=== PATIENT | female | born 1985 | race African-American/Black ===

== ENCOUNTER 2021-07-01 00:54 | Emergency (ER) | payer BC, SELFPAY ==
--- NOTE | ~2021-07-01 | CT_ITS ---
EXAMINATION: CT abdomen pelvis w con DATE: 07/01/2021 02:16 INDICATION: Left lower quadrant abdominal pain TECHNIQUE: Computed tomography (CT) of the abdomen and pelvis was performed with 100 mL Omnipaque-350 intravenous contrast. Automated exposure control and iterative reconstruction technique were employe d. The dose-length product was 267.77 mGy-cm. COMPARISON: None FINDINGS: Mild lingular discoid atelectasis. Heart size is normal. No pericardial or pleural effusion. Liver, g allbladder, spleen, pancreas, bilateral adrenal glands and kidneys are normal. Bowels including the a ppendix are normal. The incompletely distended bladder is unremarkable. Anteverted partial septate ut erus. There are couple approximately 12 mm diameter peripherally enhancing likely corpus luteum cyst at the left adnexa. Small amount of likely physiologic free fluid in the cul-de-sac. No free intraper itoneal gas. No pathologically enlarged abdominal or pelvic lymphadenopathy. Bones are unremarkable. IMPRESSION: 1. No acute intra-abdominal/pelvic process. 2. Partially septate uterus with small amount of likely physiologic free fluid in the pelvis and a co uple 12 mm likely corpus luteum cyst at the left adnexa. Reviewed, dictated and finalized at location A. IMPRESSION: 1. No acute intra-abdominal/pelvic process. 2. Partially septate uterus with small amount of likely physiologic free fluid in the pelvis and a couple 12 mm likely corpus luteum cyst at the left adnexa.
[2021-07-01 00:58] VITALS: BP 121/83; PULSE 79; RESP 18; TEMP 36.7; O2SAT 100
[2021-07-01 01:45] LABS: Basophils Percent Auto 0.5 % (0.2-1.2); Eosinophils Absolute Auto 0.1 K/mm3 (0-0.3); Eosinophils Percent Auto 2.3 % (0-4.4); Hematocrit 37.9 % (37.0-47.0); Hemoglobin 12.7 g/dL (12.0-15.0); Immature Granulocyte Absolute 0.02 K/mm3 (0.00-0.031); Immature Granulocyte Percent A 0.4 % (0-0.5); Lymphocytes Percent Auto 26.3 % (18.3-44.2); Mean Corpuscular HGB Conc 33.5 g/dl (32-36); Mean Corpuscular Hemoglobin 29.6 pg (26-34); Mean Corpuscular Volume 88.3 fl (80-100); Mean Platelet Volume 10.6 fl (7.4-10.4); Monocytes Absolute Auto 0.6 K/mm3 (0.1-0.6); Neutrophils Absolute Auto 3.5 K/mm3 (1.3-6.7); Neutrophils Percent Auto 60.5 % (45.5-73.1); Platelet Count Result 255 k/mm3 (150-375); Red Blood Count 4.29 M/mm3 (4.2-5.4); White Blood Count 5.7 K/mm3 (4.5-10.0)
[2021-07-01 01:50] LABS: Add Urine Microscopic? YES; Appearance Urine Clear (Clear); Bacteria Urine Trace /hpf; Bilirubin Urine Negative (Negative); Blood Urine 1+ (Negative); Color Urine Yellow (Yellow); Glucose Urine UA Negative (Negative); Ketones Urine Trace mg/dL (Negative); Leukocyte Esterase Ur Negative LEU/UL (Negative); Mucus Urine Heavy /lpf; Nitrate Urine Negative (Negative); Protein Urine Negative (Negative); RBC Urine 0-2 /hpf (0-2); Squamous Epithelial Cell Urine Many /hpf (Few); WBC Urine 0-3 /hpf
[2021-07-01 01:57] LABS: Alanine Aminotransferase 15 U/L (4-35); Albumin Level 4.5 g/dL (3.5-5.1); Alkaline Phosphatase 65 U/L (38-126); Anion Gap 8 mmol/L (8-16); Aspartate Amino Transferase 28 U/L (14-36); Bilirubin,Total 0.5 mg/dL (0.2-1.3); Blood Urea Nitrogen 14 mg/dL (7-17); Calcium 9.1 mg/dL (8.4-10.2); Carbon Dioxide 24 mmol/L (22-30); Chloride 103 mmol/L (98-107); Estimated Glomerular Filt Rate > 60; Glucose 103 mg/dL (65-110); Lipase 117 U/L (23-300); Potassium 3.4 mmol/L (3.4-5.0); Sodium 135 mmol/L (137-145)
[2021-07-01 02:33] VITALS: BP 132/89; PULSE 64; RESP 16; O2SAT 100
--- NOTE | 2021-07-01 04:05 | ED.ABDPAIN ---
HPI - Abdominal Pain General Chief Complaint: Abdominal Pain Stated Complaint: bliat low abd pain, blood in stool Time Seen by Provider: 07/01/21 01:13 History of Present Illness HPI narrative: Patient presents with lower abdominal pain. Patient ports pain has been present for the past couple days and getting worse initially started on the left side now radiates to her right side. Pain is achy, constant, no clear aggravating relieving factors. She denies associated nausea or vomiting she denies diarrhea but reports longstanding history of constipation and feels constipated today. She denies any urinary symptoms or vaginal bleeding. She has no known sick contacts Related Data Allergies Allergy/AdvReac Type Severity Reaction Status Date / Time No Known Allergies Allergy Unverified 10/28/11 23:40 Review of Systems Review of Systems: CONSTITUTIONAL: Denies fever, chills, or sweats. EYES: Denies visual changes, redness, or discharge. ENT: Denies rhinorrhea, congestion, sore throat, or otalgia. CARDIOVASCULAR: Denies chest pain, palpitations, or edema. RESPIRATORY: Denies cough or dyspnea. GASTROINTESTINAL: Denies nausea, vomiting, or diarrhea. GENITOURINARY: Denies dysuria or hematuria. SKIN: Denies rash or itching. MUSCULOSKELETAL: Denies back pain, joint pain, or myalgia. NEUROLOGIC: Denies headache, numbness, dizziness, or weakness. PSYCHIATRIC: Denies anxiety or depression. All systems reviewed & are unremarkable except as noted in HPI and below Exam Narrative: GENERAL: Well-appearing, well-nourished, and in no acute distress. HEAD: Normocephalic, atraumatic. EYES: PERRLA and EOMI. ENT: Nares clear, no rhinorrhea or epistaxis. Mucous membranes moist. NECK: Supple. No masses. No JVD CHEST: Clear to auscultation. No respiratory distress. No wheezes rales or rhonchi HEART: Regular rate and rhythm. No murmur heard. Normal peripheral pulses. ABDOMEN: Soft, nontender, nondistended, normal active bowel sounds. EXTREMITIES: Normal range of motion. No edema. SKIN: Warm, dry, no rash. NEURO: No focal deficits. Alert and oriented x3. PSYCH: Normal mood and affect. Course Reevaluation(s) Reevaluation #1: Patient is resting comfortably labs and work-up reviewed with patient. Patient comfortable with outpatient monitoring. Date: 07/01/21 Time: 04:08 Vital Signs Vital signs: Vital Signs Temperature 36.7 C 07/01/21 00:58 Pulse Rate 79 07/01/21 00:58 Respiratory Rate 18 07/01/21 00:58 Blood Pressure 121/83 07/01/21 00:58 Pulse Oximetry 100 07/01/21 00:58 Temperature 36.7 C 07/01/21 00:58 Pulse Rate 68 07/01/21 04:18 Respiratory Rate 16 07/01/21 04:18 Blood Pressure 120/88 07/01/21 04:18 Pulse Oximetry 98 07/01/21 04:18 MDM - Abdominal Pain MDM Narrative Medical decision making narrative: H&P as above, vss, pt looks clinically well, exam with nonacute abdomen, labs clinically unremarkable, img clinically unremarkable, additional labs/img considered, symptomatic relief available as needed, on reevaluation pt continues to looks clinically well. Symptoms remain of unclear etiology there is mild inflammatory response noted on the CT scan symptoms may represent early viral process, there is low clinical concern for appendicitis, bowel obstruction, perforation, cholecystitis, pancreatitis. With negative work-up and reassuring exam plan to tx/monitor as op w/ pcm f/u findings/plan discussed with pt, pt agree/comfortable with plan, return precautions given Lab Data Result diagrams: 07/01/21 01:16 07/01/21 01:16 Labs: Lab Results 07/01/21 07/01/21 07/01/21 Range/Units 01:16 01:16 01:16 WBC 5.7 (4.5-10.0) K/mm3 RBC 4.29 (4.2-5.4) M/mm3 Hgb 12.7 (12.0-15.0) g/dL Hct 37.9 (37.0-47.0) % MCV 88.3 (80-100) fl MCH 29.6 (26-34) pg MCHC 33.5 (32-36) g/dl RDW 12.0 (11.5-14.5) % Plt Count 255 (150-375) k/mm3 MPV 10.6 H (7
[2021-07-01 04:18] VITALS: BP 120/88; PULSE 68; RESP 16; O2SAT 98
== END 2021-07-01 04:21 | disposition home or self-care (01) ==
PROVIDERS: Emergency Provider Emergency Medicine; PCP Family Medicine
DX: R10.30 Lower abdominal pain, unspecified (principal); Q51.22 Partial doubling of uterus
CPT/HCPCS: 36415; 74177; 80053; 81001; 81025; 83690; 85025; 99284; Q9967